=== PATIENT | female | born 1945 | race Caucasian/White ===

== ENCOUNTER 2018-12-24 10:40 | Emergency (ER) | payer OTHER ==
[~2018-12-24] VITALS: Ht 162.6 cm; Wt 68.0 kg
[2018-12-24 11:13] VITALS: BP 141/81
[2018-12-24] MEDS ORDERED: KETOROLAC TROMETH 15 mg/ml 1ML VL IM ONE (11:45)
== END 2018-12-24 12:23 | disposition home or self-care (01) ==
LOC: ER 10:50
DX: M16.11 Unilateral primary osteoarthritis, right hip (principal); M17.11 Unilateral primary osteoarthritis, right knee; M19.90 Unspecified osteoarthritis, unspecified site; E78.5 Hyperlipidemia, unspecified; I10 Essential (primary) hypertension
CPT/HCPCS: 73502; 96372; 99283; J1885

== ENCOUNTER 2019-03-28 12:02 | Inpatient (IN) | payer OTHER ==
[~2019-03-28] VITALS: Ht 165.1 cm; Wt 68.6 kg
[2019-03-28 13:32] LABS: Basophils # (auto) 0.1 uL; Basophils % (auto) 1.2 % (0.0-2.0); Eosinophils # (auto) 0.1 uL; Eosinophils % (auto) 1.4 % (0.0-7.0); Hemoglobin 12.3 g/dL (12.2-16.2); Lymphocytes # (auto) 1.1 uL; Lymphocytes % (auto) 13.6 % (10.0-50.0); Mean Corpuscular Hemoglobin 30.4 pg (28.0-32.0); Mean Corpuscular Hgb Conc. 33.1 g/dL (32.0-36.0); Mean Corpuscular Volume 91.7 fL (80.0-100.0); Monocytes # (auto) 0.6 uL; Monocytes % (auto) 7.3 % (0.0-12.0); Neutrophils # (auto) 6.1 uL; Neutrophils % (auto) 76.5 % (37.0-80.0); Platelet Count (auto) 435 10^3/uL (140-450); Red Blood Cells 4.04 10^6/uL (4.0-5.20); Red Cell Distribution Width 14.7 % (11.8-14.3); White Blood Cell 7.9 10^3/uL (4.4-10.8)
[2019-03-28] MEDS: methylPREDNISolone SOD SUCC 125 MG/2 ML VL IV ONE ×2 (13:41→13:44)
[2019-03-28 13:44] LABS: Chloride 100 mmol/L (98-107); Potassium 3.8 mmol/L (3.5-5.1); Sodium 135 mmol/L (136-145)
[2019-03-28 13:47] LABS: Anion Gap 6 (5-15); Blood Urea Nitrogen 21 mg/dL (7-18); Carbon Dioxide 29 mmol/L (21-32); GFR African American 126 mL/min; GFR Non-African American 104 mL/min; Glucose 102 mg/dL (74-106); Magnesium 1.8 mg/dL (1.6-2.6)
[2019-03-28 14:05] LABS: Alanine Aminotransferase 15 U/L (13-56); Alkaline Phosphatase 115 U/L (45-117); Aspartate Aminotransferase 25 U/L (15-37); Bilirubin, Total 0.2 mg/dL (0.2-1.0); Total Protein 7.2 g/dL (6.4-8.2)
[2019-03-28] MEDS ORDERED: HYDROcodone-ACET 10/325MG TAB PO PRN (15:30)
[2019-03-28] MEDS ORDERED: ALBUTEROL SULF 2.5 MG/0.5ML(0.5%) NEB SOLN NEB PRN (15:30)
[2019-03-28] MEDS ORDERED: IPRATROPIUM BROM 0.5 MG/2.5ML INH SOL NEB PRN (15:30)
[2019-03-28] MEDS ORDERED: ONDANSETRON HCL 4 MG/2 ML VIAL IV PRN (15:30)
[2019-03-28] MEDS ORDERED: NITROGLYCERIN 0.4 MG SL TAB SL PRN (15:30)
[2019-03-28] MEDS ORDERED: MORPHINE SULF INJ 2 MG/ML SYRINGE 1ML IV PRN (15:30)
[2019-03-28 16:59] LABS: Urine Bacteria NONE SEEN /hpf (None Seen); Urine Blood Negative /uL (Negative); Urine Specific Gravity 1.018 (1.001-1.035); Urine WBC <1 /hpf (0 - 5)
[2019-03-28] MEDS ORDERED: VANCOMYCIN PER PHARMACY 0 MG IV SCH (17:30)
--- NOTE | 2019-03-28 18:00 | NUR ---
Telemetry admit from ER [facility] SU admitted to Telemetry unit after SBAR received. Patient oriented to SOLEDAD PELAEZ RN primary RN, unit, room, bed, and unit policies regarding patient care and visiting hours. Patient now on continuous telemetry monitoring, tele box # [id number] and telemetry reading on arrival to unit is SR. Patient placed on bedside oxygen 4L NC, weighed by bedscale and encouraged to call if they need something. All questions and concerns addressed, patient verbalized understanding.
--- NOTE | 2019-03-28 18:25 | NUR ---
RT NOTE: ASSESSED PT FOR PRN MED NEB TX, PT RR 24, HR 50, SPO2 96% ON 4LPM NC. PT REFUSING BREATHING TX, STATED "SHE DOESN'T LIKE TAKING THEM. THEY GIVE HER THE SHAKES." PT SAID WHEN SHE IS ABLE TO LIE FLAT ON HER SIDE HER BREATHING IS FINE. PT NOTIFIED IF SOB CONTINUES OR WANTS TO TRY BREATHING TX TO HAVE RT PAGED.
[2019-03-28] MEDS ORDERED: HYDR-4833 PO (18:27)
[2019-03-28] MEDS ORDERED: AMLO5TAB15 PO (18:27)
[2019-03-28] MEDS ORDERED: SERT-274 PO (18:27)
[2019-03-28] MEDS ORDERED: POTA10TA51 PO (18:27)
[2019-03-28] MEDS ORDERED: MELO1TAB73 PO (18:27)
[2019-03-28] MEDS ORDERED: GABA300C10 PO (18:27)
[2019-03-28 18:35] VITALS: BP 132/82
[2019-03-28 18:43] LABS: INR 0.94 (0.9-1.15)
[2019-03-28] MEDS ORDERED: TRIA75TA55 PO (18:49)
[2019-03-28] MEDS: PIPERACILLIN-TAZOB 3.375GM 100 ML IV SCH (19:02)
--- NOTE | 2019-03-28 19:14 | NUR ---
End of Shift Endorsed care to NOC nurse.
--- NOTE | 2019-03-28 19:30 | NUR ---
Opening Shift Note Assumed care of patient, awake and alert. No S/S of distress/SOB or pain; pt speaking of having received med for pain previously. This RN instructed pt on POC and to call for assist PRN. RN will continue to monitor for changes Q1hr and PRN. Pt's bed is locked at low position with HOB in semi-Cheung's position. Pt anxious to get evening meds "to lay this bed flat and I'll go to sleep." Nurse call light attached to R HOB rail which is up as is L [employer] rail
[2019-03-28] MEDS ORDERED: VANCOMYCIN 1GM/250ML 250 ML IV SCH (21:00)
[2019-03-28 22:00] VITALS: BP 132/82
[2019-03-29] MEDS: PIPERACILLIN-TAZOB 3.375GM 100 ML IV SCH ×4 (00:04→18:00)
[2019-03-29 05:00] VITALS: BP 150/69
--- NOTE | 2019-03-29 05:31 | NUR ---
Pt back in bed with HOB in semi-Cheung's after getting up to BR to have large bm Her heart rhythm had changed just prior to getting up to asymptomatic atrial fib. During the time she was in the BR, her rate increased to 140 and she amb back to bed. Pt was on extra long O2 n/c tubing. Her rate slowed to the 120s - 130s with dangling, then 120s with supine in bed.
[2019-03-29 07:00] LABS: Basophils # (auto) 0 uL; Basophils % (auto) 0.7 % (0.0-2.0); Eosinophils # (auto) 0.1 uL; Hematocrit 36.5 % (36.0-46.0); Hemoglobin 12.2 g/dL (12.2-16.2); Lymphocytes # (auto) 0.7 uL; Lymphocytes % (auto) 9.8 % (10.0-50.0); Mean Corpuscular Hemoglobin 30.4 pg (28.0-32.0); Mean Corpuscular Hgb Conc. 33.5 g/dL (32.0-36.0); Mean Corpuscular Volume 90.8 fL (80.0-100.0); Monocytes # (auto) 0.6 uL; Monocytes % (auto) 8.1 % (0.0-12.0); Neutrophils # (auto) 5.8 uL; Neutrophils % (auto) 79.4 % (37.0-80.0); Platelet Count (auto) 408 10^3/uL (140-450); Red Blood Cells 4.02 10^6/uL (4.0-5.20); Red Cell Distribution Width 14.5 % (11.8-14.3); White Blood Cell 7.3 10^3/uL (4.4-10.8)
[2019-03-29 07:15] LABS: Potassium 3.3 mmol/L (3.5-5.1)
[2019-03-29 07:21] LABS: BUN/Creatinine Ratio 22.9
[2019-03-29 09:00] VITALS: BP 134/87
[2019-03-29] MEDS ORDERED: METOPROLOL TARTRATE 25 MG TAB PO ONE ×2 (10:00→15:00)
--- NOTE | 2019-03-29 11:45 | NUR ---
Respiratory note: PT ASSESSED FOR PRN MED NEB TX. TX IS NOT INDICATED AT THIS TIME. NO SOB NOTED. POX 95% ON 4L NC, HR 113, RR 20. B/S ARE CLEAR THROUGHOUT AND DIMINISHED IN THE RLL. PT IS AWARE TO PRESS THE CALL LIGHT IF SHE FEELS SOB TO RECEIVE A MED NEB TX.
--- NOTE | 2019-03-29 12:28 | NUR ---
Opening Note Received report on the patient. Awake lying in bed. Patient shows no signs of distress at this time. Discussed plan of care with the patient. bed is in lowest position, side rails up x2, and call light is within reach. Will continue to monitor.
[2019-03-29 13:00] VITALS: BP 117/77
--- NOTE | 2019-03-29 13:00 | NUR ---
PT IN ULTRASOUND FOR A NECK MASS BIOPSY. VSS 142/[id number]% ON 4L N/C. DR OLIVAS AT BEDSIDE. TIME OUT CALLED AND PROCEDURE STARTED. 1315 137/[id number]%. FINISHED WITH PROCEDURE. PT TOLERATED WELL. NO BLEEDING. BANDAID PLACED OVER SITE. SETTING PT UP PT FOR A THORACENTESIS NEXT.
--- NOTE | 2019-03-29 13:45 | NUR ---
THORACENTESIS STARTED BY DR OLIVAS. VS 125/[id number]%. 1355: 122/[id number]%. FINISHED WITH PROCEDURE. PT TOLERATED WELL. 750 ML OF PLEURAL FLUID REMOVED AND SENT TO LAB. POST CXR DONE.
[2019-03-29 16:14] VITALS: BP 117/77
--- NOTE | 2019-03-29 16:41 | NUR ---
D/C Planning Per consult for home health safety evaluation and home O2. Contacted [facility] ph:([phone]) Fax:( [phone]) faxed medical records. Per Vickie from [facility] Pt has been accepted and service to start within 48hrs upon d/c day. Contacted [employer] Ph:( [phone]) Fax:) faxed medical records requesting for oxygen to be deliver at bedside. Contacted [facility] PH:) spoke to Sachi. Advised Sachi referral has been sent to [facility] and [employer] .Per Herlinda from [employer] will be deliver to bedside between 18:30-19:30. Informed CLAUDY Chaney. Addendum: 03/29/19 at 1709 by MARITZA ROACH Amended: Links added.
[2019-03-29 17:00] VITALS: BP 11/74
--- NOTE | 2019-03-29 18:45 | NUR ---
O2 Delivered O2 delivered to patient's bedside. Patient stated the company told her they would be delivering a concentrator to her home this evening.
--- NOTE | 2019-03-29 19:10 | NUR ---
Discharged Discharge instructions given as ordered. Encourage to follow up with PMD as instructed. All questions and concerns addressed. Patient verbalized understanding. Medication reconciliation form completed and copy given to patient. IV removed with catheter intact. Telemetry unit returned to ICU. Patient taken to vehicle via wheelchair with all personal belongings, accompanied by staff and family member. No distress noted at time of departure.
== END 2019-03-29 19:00 | disposition home health service (06) | DRG 823 ==
LOC: ER 12:02 → EDBD 12:02 → TELE 12:03 → TELE-WESTW 18:00
PROVIDERS: ADMIT Internal Medicine; ATTEND Internal Medicine
PROC: 0W9930Z Drainage of Right Pleural Cavity with Drainage Device, Percutaneous Approach (ICD-10-PCS; principal; 2019-03-29)
PROC: 07B23ZX Excision of Left Neck Lymphatic, Percutaneous Approach, Diagnostic (ICD-10-PCS; 2019-03-29)
DX: C77.0 Secondary and unspecified malignant neoplasm of lymph nodes of head, face and neck (principal); J18.9 Pneumonia, unspecified organism; J91.0 Malignant pleural effusion; I11.0 Hypertensive heart disease with heart failure; I48.91 Unspecified atrial fibrillation; I50.9 Heart failure, unspecified; M19.90 Unspecified osteoarthritis, unspecified site; J44.9 Chronic obstructive pulmonary disease, unspecified; Z79.01 Long term (current) use of anticoagulants; Z85.118 Personal history of other malignant neoplasm of bronchus and lung; Z87.891 Personal history of nicotine dependence; Z90.710 Acquired absence of both cervix and uterus; Z99.81 Dependence on supplemental oxygen; Z79.899 Other long term (current) drug therapy
CPT/HCPCS: 10022; 32555; 36415; 36600; 71045; 71250; 76536; 76604; 76942; 80048; 80053; 81001; 82805; 83605; 83735; 83880; 83986; 84484; 85025; 85610; 87040; 87070; 87205; 89051; 93005; 93306; 94761; 96365; 96367; G0378; J2405; J2543